=== PATIENT | female | born 1970 | race African-American/Black ===

== ENCOUNTER 2017-07-22 21:30 | Emergency (ER) | payer MEDICARE, MEDICAID ==
[2017-07-22 22:09] LABS: #Basophils 0.1 thou/uL (0.0-0.2); #Eosinphils 0.2 thou/uL (0.0-0.7); #Lymphocytes 2.7 thou/uL (1.20-3.40); #Monocytes 0.5 thou/uL (0.11-0.59); %Basophils 0.8 % (0.0-1.0); %Eosinophils 2.7 % (0.0-10.0); %Lymphocytes 31.6 % (21.0-51.0); Hematocrit 39.9 % (36.0-47.0); Red Blood Cell (RBC) Count 4.48 mill/uL (4.20-5.40); White Blood Cell (WBC) Count 8.4 thou/uL (4.8-10.8)
--- NOTE | 2017-07-22 22:16 | RAD ---
PA AND LATERAL CHEST: Indication: Chest pain. Comparison: 01-17-06 IMPRESSION: No acute cardiopulmonary abnormality. There are surgical clips within the right upper quadrant consis tent with prior cholecystectomy. POS: SCARLET
[2017-07-22 22:25] LABS: ALT (SGPT) 20 U/L (8-55); AST (SGOT) 16 U/L (5-34); Alkaline Phosphatase 96 U/L (40-150); Anion Gap 10 mmol/L (10-20); BUN (Urea Nitrogen) 15 mg/dL (7.0-18.7); Bilirubin, Total 0.3 mg/dL (0.2-1.2); Calc. Creatinine Clearance 0 mL/min (70-130); Calcium 9.6 mg/dL (7.8-10.44); Carbon Dioxide 26 mmol/L (22-29); Chloride 107 mmol/L (98-107); Estimated GFR-MDRD 71; Globulin 3.8 g/dL (2.4-3.5); Lipase 68 U/L (8-78); Magnesium 2.5 mg/dL (1.6-2.6); Protein, Total 8.1 g/dL (6.0-8.3)
[2017-07-22 22:29] LABS: Troponin I Less than 0.010 ng/mL (< 0.028)
== END 2017-07-22 23:38 | disposition home or self-care (01) ==
LOC: ERS 21:30
DX: R07.2 Precordial pain (principal); I10 Essential (primary) hypertension; E78.5 Hyperlipidemia, unspecified; F41.9 Anxiety disorder, unspecified; F31.9 Bipolar disorder, unspecified; G47.00 Insomnia, unspecified; F17.210 Nicotine dependence, cigarettes, uncomplicated; Z79.899 Other long term (current) drug therapy
CPT/HCPCS: 71020; 80053; 82553; 83690; 83735; 84484; 84703; 85025; 85379; 93005

== ENCOUNTER 2018-04-24 00:54 | Emergency (ER) | payer MEDICARE, MEDICAID ==
[2018-04-24] MEDS ORDERED: Ketorolac Tromethamine 30 MG/ML VIAL ONE (03:21)
--- NOTE | 2018-04-24 08:15 | RAD ---
3 VIEWS LEFT FOOT: Date: 04/24/18 COMPARISON: 06/27/10. HISTORY: Fell at work last week with pain and swelling. FINDINGS: Three views of the left foot show no evidence of acute fracture or dislocation. Mild diffuse soft tis frederick swelling is seen. A small radiopaque foreign body is on the patient's nail of the great toe. IMPRESSION: No evidence of acute osseous abnormality. POS: REMBERTO
== END 2018-04-24 03:50 | disposition home or self-care (01) ==
LOC: ERS 00:54
DX: M79.672 Pain in left foot (principal); I48.91 Unspecified atrial fibrillation; E78.5 Hyperlipidemia, unspecified; I10 Essential (primary) hypertension; F41.9 Anxiety disorder, unspecified; F31.9 Bipolar disorder, unspecified; G47.00 Insomnia, unspecified; F43.10 Post-traumatic stress disorder, unspecified; F17.210 Nicotine dependence, cigarettes, uncomplicated; Z79.899 Other long term (current) drug therapy
CPT/HCPCS: 96372; J1885

== ENCOUNTER 2018-10-11 21:50 | Emergency (ER) | payer MEDICARE, OTHER ==
[2018-10-11] MEDS ORDERED: Ketorolac Tromethamine 30 MG/ML VIAL ONE (23:03)
[2018-10-11] MEDS ORDERED: diphenhydrAMINE 50 MG/ML VIAL ONE (23:03)
[2018-10-11] MEDS ORDERED: Metoclopramide HCl 10 MG/2 ML VIAL ONE (23:03)
== END 2018-10-12 00:40 | disposition home or self-care (01) ==
LOC: ERS 21:50
DX: R51 Headache (principal); K02.9 Dental caries, unspecified; E78.5 Hyperlipidemia, unspecified; I11.0 Hypertensive heart disease with heart failure; F41.9 Anxiety disorder, unspecified; F31.9 Bipolar disorder, unspecified; G47.00 Insomnia, unspecified; F43.10 Post-traumatic stress disorder, unspecified; F17.210 Nicotine dependence, cigarettes, uncomplicated; Z79.899 Other long term (current) drug therapy
CPT/HCPCS: 96361; 96365; 96375; J1200; J1885; J2765

== ENCOUNTER 2018-12-11 19:01 | Emergency (ER) | payer MEDICARE, OTHER | END 2018-12-11 19:27 | disposition home or self-care (01) | LOC: ERS 19:01 | DX: M79.642 Pain in left hand (principal); E78.5 Hyperlipidemia, unspecified; I10 Essential (primary) hypertension; F41.9 Anxiety disorder, unspecified; F31.9 Bipolar disorder, unspecified; G47.00 Insomnia, unspecified; F43.10 Post-traumatic stress disorder, unspecified; F17.210 Nicotine dependence, cigarettes, uncomplicated | CPT/HCPCS: 99281 ==

== ENCOUNTER 2018-12-25 21:00 | Emergency (ER) | payer MEDICARE, OTHER ==
[2018-12-25] MEDS ORDERED: Ketorolac Tromethamine 30 MG/ML VIAL ONE (22:09)
== END 2018-12-25 22:17 | disposition home or self-care (01) ==
LOC: ERS 21:00
DX: G62.9 Polyneuropathy, unspecified (principal); E78.5 Hyperlipidemia, unspecified; I10 Essential (primary) hypertension; F31.9 Bipolar disorder, unspecified; F41.9 Anxiety disorder, unspecified; F43.10 Post-traumatic stress disorder, unspecified; F17.210 Nicotine dependence, cigarettes, uncomplicated; G47.00 Insomnia, unspecified; Z79.899 Other long term (current) drug therapy
CPT/HCPCS: 96372; J1885

== ENCOUNTER 2019-01-05 15:15 | Emergency (ER) | payer MEDICARE, MEDICAID ==
[~2019-01-05 15:15] MED LIST: Iopamidol 370 76% 100 ML VIAL ONE
[2019-01-05] MEDS ORDERED: Ketorolac Tromethamine 30 MG/ML VIAL ONE (15:48)
[2019-01-05] MEDS ORDERED: Acetaminophen 325 MG TAB ONE (15:48)
[2019-01-05 15:59] LABS: #Basophils 0.1 thou/uL (0.0-0.2); #Eosinphils 0.2 thou/uL (0.0-0.7); #Lymphocytes 3.8 thou/uL (1.20-3.40); #Monocytes 0.6 thou/uL (0.11-0.59); #Neutrophils 6.2 thou/uL (1.40-6.50); %Basophils 0.8 % (0.0-1.0); %Eosinophils 1.7 % (0.0-10.0); %Lymphocytes 35.1 % (21.0-51.0); %Monocytes 5.3 % (0.0-10.0); %Neutrophils 57.1 % (42.0-75.0); Hemoglobin 13.2 g/dL (12.0-16.0); Mean Corpuscular Hemoglobin 30.2 pg (27.0-31.0); Mean Corpuscular Volume 88.7 fL (78.0-98.0); Mean Platelet Volume 9.7 fL (7.4-10.4); Platelet Count 203 thou/uL (130-400); RBC Distribution Width 11.9 % (11.5-14.5); Red Blood Cell (RBC) Count 4.38 mill/uL (4.20-5.40); White Blood Cell (WBC) Count 10.8 thou/uL (4.8-10.8)
[2019-01-05 16:12] LABS: ALT (SGPT) 16 U/L (8-55); AST (SGOT) 13 U/L (5-34); Albumin 3.4 g/dL (3.5-5.0); Alkaline Phosphatase 69 U/L (40-150); Anion Gap 12 mmol/L (10-20); BUN (Urea Nitrogen) 11 mg/dL (7.0-18.7); Bilirubin, Total 0.2 mg/dL (0.2-1.2); Calc. Creatinine Clearance 0 mL/min (70-130); Calcium 8.4 mg/dL (7.8-10.44); Carbon Dioxide 22 mmol/L (22-29); Chloride 110 mmol/L (98-107); Estimated GFR-MDRD 86; Globulin 2.4 g/dL (2.4-3.5); Glucose 113 mg/dL (70-105); Potassium 3.5 mmol/L (3.5-5.1); Protein, Total 5.8 g/dL (6.0-8.3); Sodium 140 mmol/L (136-145)
--- NOTE | 2019-01-05 16:19 | RAD ---
LEFT FOOT THREE VIEWS: History: Left foot pain. Pain to fourth and fifth toes. Comparison: 04-24-18 FINDINGS: Enthesophytes from the calcaneus are unchanged in appearance. Tarsals and metatarsals unremarkable. Phalanges appear unremarkable. MTP joints unremarkable. IMPRESSION: Calcaneal enthesophytes again noted. No acute process apparent. POS: OFF
--- NOTE | 2019-01-05 16:30 | ULT ---
LEFT LOWER EXTREMITY ARTERIAL DOPPLER STUDY: Technique: Arteries of the left lower extremity evaluated with color doppler, spectral analysis and v elocity recording. Indications: Left lower extremity peripheral arterial disease. Diminished pulses in the distal left l ower extremity. FINDINGS: All arteries evaluated in the left lower extremity including common femoral artery, superficial femor al artery, popliteal artery, posterior tibial artery, and anterior tibial artery all show an abnormal monophasic waveform. Velocities are dampened throughout. IMPRESSION: Left lower extremity arterial doppler study indicates severe peripheral arterial disease to the left lower extremity. POS: OFF
[2019-01-05 18:08] LABS: Pregnancy Test - Urine (BHCG) Negative (Negative); Pregu Control Background? CLEAR/WHITE (CLR/WHITE); Pregu Control Bar Appear? YES (CONTROL BAR); Specific Gravity 1.027 (1.002-1.036)
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
== END 2019-01-05 20:15 | disposition home or self-care (01) ==
LOC: ERS 15:15
DX: I73.9 Peripheral vascular disease, unspecified (principal); I48.91 Unspecified atrial fibrillation; E78.5 Hyperlipidemia, unspecified; I10 Essential (primary) hypertension; F41.9 Anxiety disorder, unspecified; F31.9 Bipolar disorder, unspecified; G47.00 Insomnia, unspecified; F43.10 Post-traumatic stress disorder, unspecified; Z71.6 Tobacco abuse counseling; F17.210 Nicotine dependence, cigarettes, uncomplicated; Z79.899 Other long term (current) drug therapy; Z91.14 Patient's other noncompliance with medication regimen
CPT/HCPCS: 36415; 75635; 80053; 81025; 85025; 93923; 96372; 99406; J1885; Q9967

== ENCOUNTER 2019-01-17 09:30 | Inpatient (IN) | payer MEDICARE, MEDICAID ==
[2019-01-17 10:00] VITALS: BMI 34.9
[2019-01-17 10:52] LABS: Hemoglobin 13.4 g/dL (12.0-16.0); Mean Corpuscular Hemoglobin 29.7 pg (27.0-31.0); Mean Corpuscular Volume 89.9 fL (78.0-98.0); Mean Platelet Volume 9.1 fL (7.4-10.4); Platelet Count 189 thou/uL (130-400); Red Blood Cell (RBC) Count 4.51 mill/uL (4.20-5.40); White Blood Cell (WBC) Count 7.3 thou/uL (4.8-10.8)
[2019-01-17 11:21] LABS: Anion Gap 11 mmol/L (10-20); BUN (Urea Nitrogen) 14 mg/dL (7.0-18.7); Calc. Creatinine Clearance 0 mL/min (70-130); Calcium 8.8 mg/dL (7.8-10.44); Carbon Dioxide 26 mmol/L (22-29); Chloride 105 mmol/L (98-107); Estimated GFR-MDRD 77; Glucose 115 mg/dL (70-105); Potassium 3.8 mmol/L (3.5-5.1); Sodium 138 mmol/L (136-145)
[2019-01-23] MEDS ORDERED: Heparin 5,000 UNITS/ML VIAL ONE (10:06)
[2019-01-23] MEDS ORDERED: Protamine Sulfate 50 MG/5 ML VIAL ONE (10:06)
[2019-01-23] MEDS ORDERED: Morphine 4 MG/ML VIAL ONE (10:45)
[2019-01-23] MEDS ORDERED: Midazolam HCl 2 mg/2 ml Vial ONE (11:41)
[2019-01-23] MEDS ORDERED: Fentanyl 100 MCG/2 ML VIAL ONE ×4 (11:41→15:21)
[2019-01-23] MEDS ORDERED: Fentanyl 100 MCG/2 ML VIAL SLOW IVP PRN ×2 (13:32)
[2019-01-23] MEDS ORDERED: Ondansetron PF 4 MG/2 ML Vial IVP PRN (13:32)
[2019-01-23] MEDS ORDERED: Acetaminophen 325 MG TAB PO PRN (13:32)
[2019-01-23] MEDS ORDERED: HYDROcodone/Acetaminophen 5/325 mg Tablet PO PRN (13:32)
[2019-01-23] MEDS ORDERED: Sodium Chloride 0.9% 1,000 ML IV SCH (13:45)
[2019-01-23] MEDS ORDERED: Promethazine HCl 25 MG/ML VIAL IM PRN (13:54)
[2019-01-23] MEDS ORDERED: Ondansetron HCl/PF 4 MG/2 ML Vial IVP PRN (13:54)
[2019-01-23] MEDS ORDERED: Promethazine HCl 25 MG/ML VIAL SLOW IVP PRN (13:54)
[2019-01-23] MEDS ORDERED: Clopidogrel Bisulfate 300 MG TAB PO SCH (14:00)
[2019-01-23] MEDS ORDERED: Clopidogrel Bisulfate 300 MG TAB ONE (14:01)
[2019-01-23] MEDS ORDERED: Promethazine HCl 25 MG/ML VIAL ONE (14:19)
[2019-01-23] MEDS: Gabapentin 300 MG CAP PO SCH ×3 (16:52→23:37)
[2019-01-23] MEDS: CEFAZOLIN 2 GM in Premix Bag 1 BAG IVPB SCH (17:28)
[2019-01-23] MEDS: HYDROcodone/Acetaminophen 5/325 mg Tablet PO PRN (19:20)
[2019-01-24] MEDS: CEFAZOLIN 2 GM in Premix Bag 1 BAG IVPB SCH ×2 (03:18→09:40)
[2019-01-24 07:51] VITALS: TEMP 98.5
--- NOTE | 2019-01-24 08:28 | OP ---
DATE OF PROCEDURE: 01/23/2019 PREOPERATIVE DIAGNOSIS: Peripheral arterial disease with ischemic rest pain, left foot. PROCEDURES PERFORMED: Left femoral artery cutdown, angiography, placement of left common iliac stent with a 7 x 29 Viabahn balloon expandable stent. ANESTHESIA: General. FLUORO: 2 minutes, 11 seconds. CONTRAST: 21 mL. DESCRIPTION OF PROCEDURE: After prepping and draping, incision was made in the left groin. Inguinal ligament was identified and common femoral artery, profunda takeoff, and SFA were identified. The vessels were small. A double loop was placed around the profunda and SFA takeoff after 7500 units of heparin. Needle and guidewire were placed under fluoroscopy into the aorta through the left common femoral artery and a 7-[place] marker sheath was then advanced. Angiography was obtained following which an angled Alberto was advanced over the wire into the aorta and repeat angiography. A 7 x 29 mm Viabahn was then expanded to 8 atmospheres for about 6.6 mm. Following this, completion angiography showed a good result. Angiograms in the groin demonstrated no obvious thrombus and at that point, the sheath was removed with clamps on the common femoral artery proximally and then distally. There was excellent back bleeding through the profunda and SFA separately each. The arteriotomy was repaired with a couple of mattress sutures of 7-0 Prolene. Following this, there was good pulses distally. The wound was then closed in layers. The patient is to be taken to the recovery room. Job ID: [id number]
[2019-01-24] MEDS ORDERED: Hydrochlorothiazide 25 MG TAB PO SCH (09:00)
[2019-01-24] MEDS ORDERED: Clopidogrel Bisulfate 75 MG TAB PO SCH (09:00)
[2019-01-24] MEDS ORDERED: Aspirin Chewable 81 MG TAB PO SCH (09:00)
--- NOTE | 2019-01-24 09:28 | DIS ---
DATE OF ADMISSION: 01/23/2019 DATE OF DISCHARGE: 01/24/2019 HOSPITAL COURSE: Avani Ac was hospitalized yesterday, where she underwent a left femoral artery exploration and placement of a 7 x 29 Viabahn stent in her left common iliac artery. Postoperatively, she had palpable posterior tibial pulse with a good triphasic signal. She had been monophasic preop. Her pain in her foot seemed to be much better. She was not complaining on rounds. She will follow up with me in about 2 to 3 weeks and she will be discharged on her admitting medicines plus a prescription for Plavix. Job ID: [id number]
[2019-01-24] MEDS: Gabapentin 300 MG CAP PO SCH (09:32)
[2019-01-24] MEDS: HYDROcodone/Acetaminophen 5/325 mg Tablet PO PRN ×2 (09:40→13:39)
[2019-01-24 11:44] VITALS: BP 129/78
== END 2019-01-24 15:00 | disposition home or self-care (01) | DRG 254 ==
LOC: EDSTATUS 01-20 09:30 → SURG A 01-23 09:08
PROVIDERS: ADMIT Thoracic Surgery (Cardiothoracic Vascular Surgery); ATTEND Thoracic Surgery (Cardiothoracic Vascular Surgery)
PROC: 047D0DZ Dilation of Left Common Iliac Artery with Intraluminal Device, Open Approach (ICD-10-PCS; principal; 2019-01-23)
PROC: B41GYZZ Fluoroscopy of Left Lower Extremity Arteries using Other Contrast (ICD-10-PCS; 2019-01-23)
DX: I70.222 Atherosclerosis of native arteries of extremities with rest pain, left leg (principal); Z90.49 Acquired absence of other specified parts of digestive tract
CPT/HCPCS: 36416; 76000; 80048; 85027; 86850; 86900; 86901; J0690; J1644; J2250; J2270; J2550; J2720; J3010

== ENCOUNTER 2019-01-17 09:50 | Outpatient (CLI) | payer MEDICARE, MEDICAID | END 2019-01-17 09:51 | disposition home or self-care (01) | LOC: LABBT 09:50 | PROVIDERS: ATTEND Thoracic Surgery (Cardiothoracic Vascular Surgery) | DX: Z01.810 Encounter for preprocedural cardiovascular examination (principal); I70.222 Atherosclerosis of native arteries of extremities with rest pain, left leg | CPT/HCPCS: 93005; 93010 ==

== ENCOUNTER 2019-05-30 05:43 | Emergency (ER) | payer MEDICARE, OTHER | END 2019-05-30 06:37 | disposition home or self-care (01) | LOC: ERS 05:43 | DX: B34.9 Viral infection, unspecified (principal); E78.00 Pure hypercholesterolemia, unspecified; E78.5 Hyperlipidemia, unspecified; R73.03 Prediabetes; F41.9 Anxiety disorder, unspecified; F31.9 Bipolar disorder, unspecified; F43.10 Post-traumatic stress disorder, unspecified; F17.210 Nicotine dependence, cigarettes, uncomplicated; Z79.82 Long term (current) use of aspirin; Z79.899 Other long term (current) drug therapy | CPT/HCPCS: 87804; 99283 ==

== ENCOUNTER 2019-11-11 03:02 | Emergency (ER) | payer MEDICARE, MEDICAID | END 2019-11-11 03:38 | disposition home or self-care (01) | LOC: ERS 03:02 | DX: S43.401A Unspecified sprain of right shoulder joint, initial encounter (principal); E78.5 Hyperlipidemia, unspecified; E78.00 Pure hypercholesterolemia, unspecified; I10 Essential (primary) hypertension; F41.9 Anxiety disorder, unspecified; F31.9 Bipolar disorder, unspecified; G47.00 Insomnia, unspecified; F43.10 Post-traumatic stress disorder, unspecified; X50.9XXA Other and unspecified overexertion or strenuous movements or postures, initial encounter | CPT/HCPCS: 99283 ==

== ENCOUNTER 2020-02-17 22:39 | Emergency (ER) | payer MEDICARE, MEDICAID ==
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
== END 2020-02-17 23:49 | disposition home or self-care (01) ==
LOC: ERS 22:39
DX: S16.1XXA Strain of muscle, fascia and tendon at neck level, initial encounter (principal); M79.642 Pain in left hand; F31.9 Bipolar disorder, unspecified; F41.9 Anxiety disorder, unspecified; F43.10 Post-traumatic stress disorder, unspecified; G47.00 Insomnia, unspecified; Z87.891 Personal history of nicotine dependence; V49.9XXA Car occupant (driver) (passenger) injured in unspecified traffic accident, initial encounter
CPT/HCPCS: 70450; 72125

== ENCOUNTER 2020-05-12 05:52 | Emergency (ER) | payer MEDICAID, MEDICARE, OTHER ==
[2020-05-12] MEDS ORDERED: Ketorolac Tromethamine 30 MG/ML VIAL ONE (06:23)
== END 2020-05-12 06:51 | disposition home or self-care (01) ==
LOC: ERS 05:52
DX: S16.1XXA Strain of muscle, fascia and tendon at neck level, initial encounter (principal); F41.9 Anxiety disorder, unspecified; F31.9 Bipolar disorder, unspecified; F43.10 Post-traumatic stress disorder, unspecified; G47.00 Insomnia, unspecified; E78.5 Hyperlipidemia, unspecified; E78.00 Pure hypercholesterolemia, unspecified; I10 Essential (primary) hypertension; E11.9 Type 2 diabetes mellitus without complications; F17.210 Nicotine dependence, cigarettes, uncomplicated; Z79.84 Long term (current) use of oral hypoglycemic drugs; Z79.899 Other long term (current) drug therapy; X58.XXXA Exposure to other specified factors, initial encounter
CPT/HCPCS: 96372; 99283; J1885

== ENCOUNTER 2020-09-05 15:31 | Emergency (ER) | payer OTHER ==
[2020-09-05 17:37] LABS: Bilirubin Negative (Negative); Blood, Urine Negative (Negative); Clarity Clear (Clear); Glucose, Urine (Dipstick) Normal (Negative); Ketone, Urine Negative (Negative); Leukocyte Negative Leu/uL (Negative); Nitrite Negative (Negative); Protein, Urine (Dipstick) Negative (Neg-Trace); Specific Gravity, Urine 1.013 (1.002-1.036); Urobilinogen Normal mg/dL (Less than 2)
[2020-09-05 22:31] LABS: SARS-CoV-2 PCR by NAA Not Detected (NotDetected)
== END 2020-09-05 18:21 | disposition home or self-care (01) ==
LOC: ERS 15:31
DX: M79.605 Pain in left leg (principal); Z20.822 Contact with and (suspected) exposure to COVID-19; E78.5 Hyperlipidemia, unspecified; I10 Essential (primary) hypertension; E11.9 Type 2 diabetes mellitus without complications; F17.210 Nicotine dependence, cigarettes, uncomplicated
CPT/HCPCS: 81003; 87635; 99283; U0003; U0005

== ENCOUNTER 2020-10-29 07:23 | Outpatient (CLI) | payer MEDICARE, OTHER ==
[2020-10-29] MEDS ORDERED: Iopamidol-370 76% 500 ML 1 ML ONE (11:14)
== END 2020-10-29 07:24 | disposition home or self-care (01) ==
LOC: BICCT 07:23
PROVIDERS: ATTEND Thoracic Surgery (Cardiothoracic Vascular Surgery)
DX: I70.222 Atherosclerosis of native arteries of extremities with rest pain, left leg (principal); I77.4 Celiac artery compression syndrome; M51.27 Other intervertebral disc displacement, lumbosacral region; M48.061 Spinal stenosis, lumbar region without neurogenic claudication; E27.8 Other specified disorders of adrenal gland; M47.819 Spondylosis without myelopathy or radiculopathy, site unspecified
CPT/HCPCS: 75635; 82565; Q9967

== ENCOUNTER 2020-11-10 09:48 | Outpatient (CLI) | payer MEDICARE, MEDICAID ==
[2020-11-10 11:39] LABS: Hemoglobin 12.5 g/dL (12.0-15.5); Mean Corpuscular HGB CONC 31.1 g/dL (32.0-36.0); Mean Corpuscular Hemoglobin 27.5 pg (27.0-33.0); Mean Corpuscular Volume 88.4 fl (81.6-98.3); Mean Platelet Volume 11.9 fl (7.4-10.4); Platelet Count 261 10x3/uL (150-450); RBC Distribution Width 13.5 % (11.5-14.5); Red Blood Cell (RBC) Count 4.55 10x6/uL (3.90-5.03); White Blood Cell (WBC) Count 7.3 10x3/uL (3.5-10.5)
[2020-11-10 12:01] LABS: Anion Gap 11 mmol/L (10-20); BUN (Urea Nitrogen) 13 mg/dL (7.0-18.7); Calc. Creatinine Clearance 0 mL/min (70-130); Calcium 9.2 mg/dL (7.8-10.44); Carbon Dioxide 28 mmol/L (22-29); Chloride 103 mmol/L (98-107); Glucose 115 mg/dL (70-105); Potassium 4.3 mmol/L (3.5-5.1); Sodium 138 mmol/L (136-145)
[2020-11-10 19:33] LABS: SARS-CoV-2 PCR by NAA Not Detected (NotDetected)
== END 2020-11-10 09:49 | disposition home or self-care (01) ==
LOC: LABBT 09:48
PROVIDERS: ATTEND Thoracic Surgery (Cardiothoracic Vascular Surgery)
DX: Z01.812 Encounter for preprocedural laboratory examination (principal); I73.9 Peripheral vascular disease, unspecified; Z20.822 Contact with and (suspected) exposure to COVID-19
CPT/HCPCS: 80048; 85027; U0003; U0005; 87635

== ENCOUNTER 2020-11-15 08:31 | Day surgery (SDC) | payer MEDICARE, MEDICAID ==
[2020-11-12 09:56] VITALS: BMI 38.3
[2020-11-15] MEDS ORDERED: Iopamidol 370 76% 50 ML VIAL FS ONE (09:17)
[2020-11-15] MEDS ORDERED: Lidocaine 1% (PF) 30 ML VIAL ONE (09:54)
[2020-11-15] MEDS ORDERED: Heparin 10,000 UNITS/ 10 ML VIAL ONE (11:36)
[2020-11-15] MEDS ORDERED: Protamine Sulfate 50 MG/5 ML VIAL ONE (12:01)
[2020-11-15] MEDS ORDERED: Aspirin Chewable 81 MG TAB ONE (13:17)
[2020-11-15] MEDS ORDERED: HYDROcodone/Acetaminophen 5/325 mg Tablet ONE (17:31)
[2020-11-15] MEDS ORDERED: hydrALAZINE 20 MG/ML VIAL ONE (17:35)
[2020-11-15] MEDS ORDERED: Sodium Chloride 0.9% 10 ML ONE (17:36)
[2020-11-15] MEDS ORDERED: Ondansetron PF 4 MG/2 ML Vial ONE (17:49)
== END 2020-11-15 18:20 | disposition home or self-care (01) ==
LOC: CCL 08:31
PROVIDERS: ATTEND Thoracic Surgery (Cardiothoracic Vascular Surgery)
PROC: 047D3DZ Dilation of Left Common Iliac Artery with Intraluminal Device, Percutaneous Approach (ICD-10-PCS; principal; 2020-11-15)
DX: T82.856A Stenosis of peripheral vascular stent, initial encounter (principal); I70.222 Atherosclerosis of native arteries of extremities with rest pain, left leg; I70.212 Atherosclerosis of native arteries of extremities with intermittent claudication, left leg; E78.2 Mixed hyperlipidemia; I10 Essential (primary) hypertension; E78.00 Pure hypercholesterolemia, unspecified; Z87.891 Personal history of nicotine dependence; Z79.02 Long term (current) use of antithrombotics/antiplatelets; Z79.84 Long term (current) use of oral hypoglycemic drugs; Z79.899 Other long term (current) drug therapy; Z91.010 Allergy to peanuts
CPT/HCPCS: 36245; 37221; 75710; 76942; 85347; 99152; C1876; J0360; J1644; J2001; J2405; J2720; Q9967

== ENCOUNTER 2021-01-28 00:31 | Emergency (ER) | payer MEDICARE, MEDICAID ==
[2021-01-28 01:02] LABS: #Basophils 0.1 thou/uL (0.0-0.2); #Eosinphils 0.2 thou/uL (0.0-0.7); #Lymphocytes 3.2 thou/uL (1.20-3.40); #Monocytes 0.5 thou/uL (0.11-0.59); #Neutrophils 4.2 thou/uL (1.40-6.50); %Basophils 1.3 % (0.0-1.0); %Eosinophils 2.2 % (0.0-10.0); %Lymphocytes 39.5 % (21.0-51.0); %Monocytes 6.1 % (0.0-10.0); Hemoglobin 11.9 g/dL (12.0-16.0); Mean Corpuscular HGB CONC 33.9 g/dL (32.0-36.0); Mean Corpuscular Hemoglobin 30.3 pg (27.0-31.0); Mean Corpuscular Volume 89.2 fL (78.0-98.0); Mean Platelet Volume 9.8 fL (7.4-10.4); Platelet Count 212 thou/uL (130-400); RBC Distribution Width 12.6 % (11.5-14.5); Red Blood Cell (RBC) Count 3.94 mill/uL (4.20-5.40); White Blood Cell (WBC) Count 8.2 thou/uL (4.8-10.8)
[2021-01-28 01:18] LABS: ALT (SGPT) 33 U/L (8-55); AST (SGOT) 16 U/L (5-34); Albumin 3.8 g/dL (3.5-5.0); Alkaline Phosphatase 111 U/L (40-110); Anion Gap 11 mmol/L (10-20); BUN (Urea Nitrogen) 10 mg/dL (7.0-18.7); Bilirubin, Total 0.2 mg/dL (0.2-1.2); Calc. Creatinine Clearance 0 mL/min (70-130); Calcium 9.7 mg/dL (7.8-10.44); Carbon Dioxide 28 mmol/L (22-29); Chloride 104 mmol/L (98-107); Globulin 3.3 g/dL (2.4-3.5); Glucose 161 mg/dL (70-105); Potassium 3.6 mmol/L (3.5-5.1); Protein, Total 7.1 g/dL (6.0-8.3); Sodium 139 mmol/L (136-145)
== END 2021-01-28 03:08 | disposition home or self-care (01) ==
LOC: ERS 00:31
DX: M79.89 Other specified soft tissue disorders (principal); E78.5 Hyperlipidemia, unspecified; I10 Essential (primary) hypertension; E11.9 Type 2 diabetes mellitus without complications; F31.9 Bipolar disorder, unspecified; F41.9 Anxiety disorder, unspecified; Z79.899 Other long term (current) drug therapy
CPT/HCPCS: 36415; 80053; 83880; 84484; 85025; 93005

== ENCOUNTER 2021-02-01 14:04 | Outpatient (CLI) | payer MEDICARE, MEDICAID ==
[~2021-02-01 14:04] MED LIST changes: -Iopamidol 370 76% 100 ML VIAL ONE; +Iopamidol-370 76% 500 ML 1 ML ONE
== END 2021-02-01 14:05 | disposition home or self-care (01) ==
LOC: BICCT 14:04
PROVIDERS: ATTEND Thoracic Surgery (Cardiothoracic Vascular Surgery)
DX: I70.222 Atherosclerosis of native arteries of extremities with rest pain, left leg (principal); T82.858A Stenosis of other vascular prosthetic devices, implants and grafts, initial encounter
CPT/HCPCS: 75635; Q9967

== ENCOUNTER 2021-02-28 10:45 | Outpatient (CLI) | payer MEDICARE, MEDICAID ==
[2021-02-28 11:48] LABS: Hemoglobin 12.6 g/dL (12.0-15.5); Mean Corpuscular HGB CONC 31.8 g/dL (32.0-36.0); Mean Corpuscular Hemoglobin 27.6 pg (27.0-33.0); Mean Corpuscular Volume 86.8 fl (81.6-98.3); Platelet Count 247 10x3/uL (150-450); RBC Distribution Width 14.1 % (11.5-14.5); Red Blood Cell (RBC) Count 4.56 10x6/uL (3.90-5.03)
[2021-02-28 12:14] LABS: Anion Gap 12 mmol/L (10-20); BUN (Urea Nitrogen) 13 mg/dL (7.0-18.7); Calc. Creatinine Clearance 0 mL/min (70-130); Calcium 9.7 mg/dL (7.8-10.44); Carbon Dioxide 26 mmol/L (22-29); Chloride 103 mmol/L (98-107); Glucose 137 mg/dL (70-105); Potassium 3.6 mmol/L (3.5-5.1); Sodium 137 mmol/L (136-145)
[2021-03-01 14:21] LABS: SARS-CoV-2 PCR by NAA Not Detected (NotDetected)
== END 2021-02-28 10:46 | disposition home or self-care (01) ==
LOC: LABBT 10:45
PROVIDERS: ATTEND Thoracic Surgery (Cardiothoracic Vascular Surgery)
DX: Z01.812 Encounter for preprocedural laboratory examination (principal); I73.9 Peripheral vascular disease, unspecified; Z20.822 Contact with and (suspected) exposure to COVID-19
CPT/HCPCS: 80048; 85027; 86850; 86900; 86901; 86920; U0003; U0005

== ENCOUNTER 2022-10-02 11:20 | Emergency (ER) | payer MEDICAID, MEDICARE, OTHER ==
[2022-10-02 13:10] LABS: SARS-CoV-2 NAA Rapid Test Not Detected (NotDetected)
== END 2022-10-02 13:44 | disposition home or self-care (01) ==
LOC: ERS 11:20
DX: B34.9 Viral infection, unspecified (principal); J06.9 Acute upper respiratory infection, unspecified; E78.00 Pure hypercholesterolemia, unspecified; I10 Essential (primary) hypertension; E11.9 Type 2 diabetes mellitus without complications; Z79.899 Other long term (current) drug therapy; Z79.84 Long term (current) use of oral hypoglycemic drugs; Z20.822 Contact with and (suspected) exposure to COVID-19
CPT/HCPCS: 71045

== ENCOUNTER 2023-03-23 18:49 | Emergency (ER) | payer OTHER | END 2023-03-23 20:07 | disposition home or self-care (01) | LOC: ERS 18:49 | DX: L25.9 Unspecified contact dermatitis, unspecified cause (principal); E78.00 Pure hypercholesterolemia, unspecified; I10 Essential (primary) hypertension; E11.9 Type 2 diabetes mellitus without complications; Z79.899 Other long term (current) drug therapy | CPT/HCPCS: 36416; 99284 ==

== ENCOUNTER 2023-03-25 03:13 | Emergency (ER) | payer OTHER ==
[2023-03-25] MEDS ORDERED: Dexamethasone 4 MG TAB ONE (03:35)
[2023-03-25] MEDS ORDERED: Famotidine 20 MG TAB ONE (03:35)
== END 2023-03-25 04:17 | disposition home or self-care (01) ==
LOC: ERS 03:13
DX: T78.40XA Allergy, unspecified, initial encounter (principal)
CPT/HCPCS: 99283; J8540

== ENCOUNTER 2023-04-07 12:22 | Emergency (ER) | payer OTHER ==
[2023-04-07] MEDS ORDERED: Dicyclomine 20 MG/2 ML VIAL ONE (13:15)
[2023-04-07] MEDS ORDERED: Ondansetron ODT 4 MG TAB ONE (13:15)
[2023-04-07 13:34] LABS: Bacteria/HPF None Seen HPF (None Seen); Bilirubin Negative (Negative); Blood, Urine Negative (Negative); CAUTI Indications for Culture Dysuria,urgency,freq; Clarity Clear (Clear); Glucose, Urine (Dipstick) Normal (Negative); Ketone, Urine Negative (Negative); Leukocyte Negative Leu/uL (Negative); Nitrite Negative (Negative); Protein, Urine (Dipstick) 10 mg/dL (Neg-Trace); RBC/HPF 0-3 HPF (0-3); Specific Gravity, Urine 1.028 (1.002-1.036); Squamous Epithelial 0-3 HPF (0-3); Urobilinogen Normal mg/dL (Less than 2); WBC/HPF 0-3 HPF (0-3)
[2023-04-07 13:35] LABS: Urine Culture Reflex No No
[2023-04-07 14:08] LABS: SARS-CoV-2 NAA Rapid Test Not Detected (NotDetected)
== END 2023-04-07 14:34 | disposition home or self-care (01) ==
LOC: ERS 12:22
DX: R11.2 Nausea with vomiting, unspecified (principal); J02.9 Acute pharyngitis, unspecified; R19.7 Diarrhea, unspecified; E78.00 Pure hypercholesterolemia, unspecified; I10 Essential (primary) hypertension; E11.9 Type 2 diabetes mellitus without complications; Z79.899 Other long term (current) drug therapy
CPT/HCPCS: 0240U; 81001; 96372; 99284; Q0162

== ENCOUNTER 2024-05-21 13:44 | Emergency (ER) | payer OTHER ==
[2024-05-21 15:58] LABS: #Basophils 0.06 10x3/uL (0.0-0.2); %Basophils 0.6 % (0.0-1.0); %Eosinophils 2.5 % (0.0-10.0); %Lymphocytes 28.3 % (21.0-51.0); %Monocytes 7.4 % (0.0-10.0); Hematocrit 36.6 % (36.0-47.0); Hemoglobin 11.8 g/dL (12.0-16.0); Mean Corpuscular HGB CONC 32.2 g/dL (32.0-36.0); Mean Corpuscular Volume 86.7 fL (78.0-98.0); Mean Platelet Volume 12.2 fL (7.4-10.4); Platelet Count 230 10x3/uL (130-400); RBC Distribution Width 13.7 % (11.5-14.5); Red Blood Cell (RBC) Count 4.22 mill/uL (4.20-5.40)
[2024-05-21 16:13] LABS: ALT (SGPT) 19 U/L (8-55); AST (SGOT) 17 U/L (5-34); Albumin 3.8 g/dL (3.5-5.0); Alkaline Phosphatase 105 U/L (40-110); Anion Gap 13 mmol/L (10-20); BUN (Urea Nitrogen) 18 mg/dL (9.8-20.1); Bilirubin, Total 0.3 mg/dL (0.2-1.2); Calc. Creatinine Clearance 0 mL/min (70-130); Calcium 9.9 mg/dL (7.8-10.44); Carbon Dioxide 28 mmol/L (22-29); Chloride 102 mmol/L (98-107); Estimated GFR 65; Globulin 3.2 g/dL (2.4-3.5); Glucose 103 mg/dL (70-105); Potassium 3.7 mmol/L (3.5-5.1); Sodium 139 mmol/L (136-145)
[2024-05-21 16:16] LABS: Troponin I Less than 0.010 ng/mL (< 0.028)
== END 2024-05-21 16:32 | disposition home or self-care (01) ==
LOC: ERS 13:44
DX: M54.12 Radiculopathy, cervical region (principal); E11.9 Type 2 diabetes mellitus without complications; I10 Essential (primary) hypertension
CPT/HCPCS: 36415; 70450; 71045; 80053; 84484; 85025; 93005

== ENCOUNTER 2024-06-13 13:55 | Outpatient (CLI) | payer OTHER | END 2024-06-13 13:56 | disposition home or self-care (01) | LOC: MRI 13:55 | PROVIDERS: ATTEND Nurse Practitioner Family | DX: M54.12 Radiculopathy, cervical region (principal); R20.0 Anesthesia of skin; M47.812 Spondylosis without myelopathy or radiculopathy, cervical region; M48.02 Spinal stenosis, cervical region | CPT/HCPCS: 72141 ==

== ENCOUNTER 2025-07-08 10:56 | Outpatient (CLI) | payer OTHER | END 2025-07-08 10:57 | disposition home or self-care (01) | LOC: BICRAD 10:56 | PROVIDERS: ATTEND Family Medicine | DX: M25.561 Pain in right knee (principal) ==